=== PATIENT | female | born 1965 | race African-American/Black ===

== ENCOUNTER 2019-04-27 12:37 | Emergency (ER) | payer OTHER ==
--- NOTE | 2019-04-27 12:52 | PDOC ---
History of Present Illness - General Chief Complaint: Injury Stated Complaint: HEADACHE S/P FALL Time Seen by Provider: 04/27/19 12:52 - History of Present Illness Initial Comments: 04/27/19 14:15 Chief complaint: Injuries to head face and right knee History of present illness: Patient tripped over an irregularity on the ground, fell forward, striking her forehead and right side of her face on the ground, also bruising her right knee. This occurred just [employer] Review of systems: Denies loss of consciousness, headache, visual or focal neurologic symptoms, unsteadiness of gait, chest pain, shortness of breath, abdominal pain, nausea, vomiting, diarrhea, urinary tract symptoms, vaginal bleeding or discharge. Remainder of systems reviewed and found to be negative. Past medical history: Patient denies current medical or surgical problems. No home medication Social/family history reviewed and noncontributory Physical exam: Alert oriented 3 well-developed well-nourished no acute distress cooperative Afebrile, vital signs normal Head atraumatic. Although she points to a contusion in the mid forehead, there is no visible or palpable hematoma, deformity, abrasion or laceration. PERRLA 4 mm, fundi benign with sharp disc margins and good central venous pulsations ENT clear Minor contusion over the left lateral cheek without deformity, crepitus, or significant tenderness. EOMs full without diplopia. No V2 numbness or tingling. Neurological C2 to 12 intact. Strength full and symmetric. No focal sensory or motor deficits. Gait stable and unimpaired. Cerebellar function intact Neck without point tenderness or deformity, full range of motion without pain Chest clear to P&A. Full breath sounds bilaterally. No chest or rib cage tenderness or deformity CV S1 and S2 normal without murmur or gallop pulses full and symmetric no JVD or edema no bruits Abdomen soft nontender without mass or organomegaly No pelvic or spine point tenderness or deformity Extremities without visible or palpable trauma except to the right knee, where there is a 1 cm contusion over the patella, inferior medial border. There is no limited range of motion, no stress tenderness or laxity of the MCL or LCL, and Rm is negative. There is no effusion other deformity Impression: Minor head injury, minor contusion to the face, minor contusion to the right knee. Plan: CT is negative. Symptomatic treatment and follow up primary physician. Rest ice and medication as directed. Discharged fully ambulatory and in no distress with family member to follow-up as indicated. Past History - Past Medical History Allergies/Adverse Reactions: Allergies Allergy/AdvReac Type Severity Reaction Status Date / Time aspirin Allergy Intermediate Hives Verified 04/27/19 12:48 Home Medications: Ambulatory Orders Tramadol HCl 50 mg PO TID PRN #10 tablet MDD 3 04/27/19 COPD: No Other medical history: pt denies *DC/Admit/Observation/Transfer Diagnosis at time of Disposition: Head injury Qualifiers: Encounter type: initial encounter Qualified Code(s): S09.90XA - Unspecified injury of head, initial encounter Facial contusion Qualifiers: Encounter type: initial encounter Qualified Code(s): S00.83XA - Contusion of other part of head, initial encounter Contusion of leg Qualifiers: Encounter type: initial encounter Laterality: right Qualified Code(s): S80.11XA - Contusion of right lower leg, initial encounter - Discharge Dispostion Disposition: HOME Condition at time of disposition: Stable Decision to Admit order: No - Prescriptions Prescriptions: Tramadol HCl 50 mg PO TID PRN #10 tablet MDD 3 PRN Reason: headache, pain - Referrals Referrals: Alonso Rodríguez DO [Staff Physician] - 3 days - Patient Instructions Printed Discharge Instructions: DI for Contusion, DI for Closed Head Injury - Post Discharge Activity Forms/Work/School Notes: Back to Work
[2019-04-27] MEDS ORDERED: ACETAMINOPHEN 500 MG TABLET (FP) PO ONE (12:53)
[2019-04-27 12:54] VITALS: BP 141/90; PULSE 77; TEMP 99; BMI 25.4
[2019-04-27] MEDS ORDERED: ACETAMINOPHEN 500 MG TABLET (FP) ONE (13:00)
== END 2019-04-27 14:10 | disposition home or self-care (01) ==
LOC: FER 12:37
DX: S09.90XA Unspecified injury of head, initial encounter (principal); S00.83XA Contusion of other part of head, initial encounter; S80.11XA Contusion of right lower leg, initial encounter; W18.39XA Other fall on same level, initial encounter; Y93.89 Activity, other specified; Y92.89 Other specified places as the place of occurrence of the external cause
CPT/HCPCS: 70450-TC; 99282-25